=== PATIENT | female | born 1990 | race Caucasian/White ===

== ENCOUNTER 2017-01-14 22:18 | Inpatient (IN) ==
[2017-01-14] MEDS ORDERED: PITOCIN 30 UNITS/LR 30 UNITS/500 ML IV.SOLN IV SCH (22:23)
[2017-01-14] MEDS ORDERED: PEPCID IV PRN (22:23)
[2017-01-14] MEDS ORDERED: STADOL IV PRN ×3 (22:23)
[2017-01-14] MEDS ORDERED: BRETHINE SUBQ PRN (22:23)
[2017-01-14] MEDS ORDERED: TYLENOL PO PRN (22:23)
[2017-01-14] MEDS ORDERED: ZOFRAN IV PRN (22:23)
[2017-01-14] MEDS ORDERED: KEFZOL 1 GM/D5W 1 GM/50 ML IVPB IV PRN (22:23)
[2017-01-14] MEDS ORDERED: AMBIEN PO PRN (22:23)
[2017-01-14] MEDS: LR 1,000 ML IV SCH (23:20)
[2017-01-14 23:45] LABS: URINE SOURCE VOIDED
[2017-01-15 00:17] LABS: BASO% 0.1 % (0.0-0.8); EOS# 0.09 X1000 (0.0-0.7); HEMOGLOBIN 8.6 g/dL (12.0-16.0); IMM GRAN# 0.03 X1000 (0.0-0.04); IMM GRAN% 0.3 % (0.0-0.5); LYMPH# 2.76 X1000 (1.2-3.4); LYMPH% 31.3 % (20.5-51.1); MANUAL DIFF NEEDED? YES; MCH 22.2 PG (27-31); MCHC 30.7 g/dL (33-37); MCV 72.4 FL (81-99); MONO# 0.53 X1000 (0.11-0.59); MPV 10.5 FL (7.4-10.4); NEUT% 61.3 % (42.2-75.2); PLT 241 X1000 (130-400); RBC 3.87 XMIL (4.2-5.4)
[2017-01-15 00:21] LABS: BILIRUBIN URINE NEGATIVE (NEGATIVE); BLOOD URINE TRACE (NEGATIVE); CLARITY CLEAR (CLEAR); COLOR YELLOW; GLUCOSE URINE NEGATIVE (NEGATIVE); LEUKOCYTES URINE TRACE (NEGATIVE); NITRITE URINE NEGATIVE (NEGATIVE); PROTEIN URINE 1+(30 mg/dL) mg/dL (NEGATIVE); UROBILINOGEN URINE 1+(1 mg/dL)
[2017-01-15 01:19] LABS: BANDS 2 % (0-1); EOS 2 % (1-10); LYMPHS 34 % (21-51); MONO 2 % (1-9)
[2017-01-15 01:20] LABS: POLYCHROM OCCASIONAL
[2017-01-15 01:21] LABS: HYPOCHROM OCCASIONAL
[2017-01-15] MEDS ORDERED: CYTOTEC PO ONE (02:30)
[2017-01-15] MEDS ORDERED: FENTANYL-BUPIV-NS 2 MCG-0.1% 200 ML EPIDURAL PRN (06:44)
[2017-01-15] MEDS: LR 1,000 ML IV SCH ×2 (07:15→08:02)
[2017-01-15] MEDS ORDERED: XYLOCAINE 1% INJ ONE (07:31)
[2017-01-15] MEDS ORDERED: MINERAL OIL TOP ONE (07:31)
[2017-01-15] MEDS ORDERED: XYLOCAINE-MPF 1% INJ ONE (07:45)
[2017-01-15] MEDS ORDERED: NAROPIN 0.2% ONE (10:11)
[2017-01-15] MEDS ORDERED: PERI MEDS (DERMOPLAST/NUPERCAINAL/TUCKS) MISC PRN (12:05)
[2017-01-15] MEDS ORDERED: CYTOTEC PO PRN (12:05)
[2017-01-15] MEDS ORDERED: HYDROXYZINE PO PRN (12:05)
[2017-01-15] MEDS ORDERED: BENADRYL PO PRN (12:05)
[2017-01-15] MEDS ORDERED: HYDROXYZINE IM PRN (12:05)
[2017-01-15] MEDS ORDERED: BOOSTRIX VACCINE IM ONE (12:05)
[2017-01-15] MEDS ORDERED: BENADRYL IV PRN (12:05)
[2017-01-15] MEDS ORDERED: XYLOCAINE-MPF 1% INJ PRN (12:05)
[2017-01-15] MEDS ORDERED: M-M-R II VACCINE SUBQ ONE (12:05)
[2017-01-15] MEDS ORDERED: PITOCIN IM PRN (12:05)
[2017-01-15] MEDS ORDERED: PITOCIN 30 UNITS/LR 30 UNITS/500 ML IV.SOLN IV ONE (12:05)
[2017-01-15] MEDS ORDERED: PITOCIN 20 UNITS/LR 20 UNITS/1,000 ML IV.SOLN IV SCH (12:05)
[2017-01-15] MEDS ORDERED: NORCO-10 PO PRN (12:05)
[2017-01-15] MEDS ORDERED: AMBIEN PO PRN (12:05)
[2017-01-15] MEDS ORDERED: MINERAL OIL PO PRN (12:05)
--- NOTE | 2017-01-15 13:03 | OPERATIVE NOTE ---
PROCEDURE DATE: 01/15/2017 DELIVERY NOTE: The patient underwent sterile controlled spontaneous vaginal delivery of a viable male , weighing 7 pounds 15 ounces, with scores of 9 and 10. Loose nuchal reduced at perineum. No dystocia. Cord doubly clamped and cut and the infant handed off to the waiting pediatric staff. Placenta delivered spontaneously and intact. Uterus firm with Pitocin and massage. Uterus, cervix, and vagina explored, no lacerations noted. ESTIMATED BLOOD LOSS: 200 mL. COMPLICATIONS: None. cc: MD Ramone Martin MD
[2017-01-15] MEDS: PERICOLACE PO SCH ×2 (20:45→20:46)
[2017-01-15] MEDS: MOTRIN PO PRN (20:50)
[2017-01-15] MEDS: NORCO-5 PO PRN (20:51)
[2017-01-16 07:10] LABS: HEMATOCRIT 28.8 % (37.0-47.0); HEMOGLOBIN 8.9 g/dL (12.0-16.0); MCH 23.2 PG (27-31); MCHC 30.9 g/dL (33-37); MPV 11.2 FL (7.4-10.4); RBC 3.84 XMIL (4.2-5.4)
--- NOTE | 2017-01-16 10:42 | PROGRESS NOTE ---
DATE: 01/16/2017 SUBJECTIVE: She is day 1 from induction for PIH. She is without complaints. OBJECTIVE: Vital signs: Her vital signs are stable. She is afebrile. Blood pressure this morning is good. However, it was slightly elevated overnight. However, patient states she has no complaints with that, so I suspect the blood pressure will normalize over the next few days to weeks. No treatment need at this point. Neck: Supple. Lungs: Clear. Heart: Regular sinus rhythm. Abdomen: Slightly distended but uterus is firm, nontender. Extremities: +2 lower extremity edema. LABORATORY DATA: Hemoglobin 8.9. PLAN: Will continue to watch blood pressure, continue current management, and probable discharge tomorrow. cc: MD Ramone Estrada MD
[2017-01-16] MEDS: MOTRIN PO PRN (15:39)
[2017-01-16] MEDS: NORCO-5 PO PRN (15:39)
[2017-01-16] MEDS: PERICOLACE PO SCH (20:56)
[2017-01-17 08:44] VITALS: BP 126/83
[2017-01-17] MEDS: NORCO-5 PO PRN (08:53)
[2017-01-17] MEDS: MOTRIN PO PRN (08:53)
--- NOTE | 2017-01-17 14:55 | DISCHARGE SUMMARY ---
ADMISSION DATE: 01/14/2017 DISCHARGE DATE: 01/17/2017 ADMIT DIAGNOSIS: Term for vaginal delivery. DISCHARGE DIAGNOSIS: Vaginal delivery. CONDITION: Stable. DIET: As tolerated. ACTIVITY: Routine . MEDICATION: [place] 5. She is to take [id number] Motrin and continue her vitamins with iron, and she is to follow up in 6 weeks. HOSPITAL COURSE: Please refer to Ms. Hernandez's records and delivery note. She had a successful vaginal delivery and currently day 2 without complaints and desiring discharge. PHYSICAL EXAMINATION: Vital Signs: Stable. She is afebrile. General Appearance: She is alert and cooperative, in no acute distress. Neck: Supple. Lungs: Clear. Heart: Regular sinus rhythm. Abdomen: Slightly distended. Uterus is firm and nontender. Extremities: No cyanosis, clubbing, or edema in her extremities. LABORATORY DATA: Hemoglobin has been stable. DISPOSITION: We will discharge with above instructions. cc: MD Ramone Estrada MD
== END 2017-01-17 12:30 | disposition home or self-care (01) ==
LOC: P.LD 22:18 → P.WC 01-15 17:36
PROVIDERS: ADMIT Obstetrics & Gynecology; ATTEND Obstetrics & Gynecology